=== PATIENT | male | born 1985 | race Caucasian/White ===

== ENCOUNTER 2016-06-18 03:20 | Emergency (ER) | payer SELFPAY ==
[~2016-06-18] VITALS: Ht 185.4 cm; Wt 76.2 kg
[2016-06-18 03:20] VITALS: BP 129/87
--- NOTE | 2016-06-18 04:15 | PHYS DOC ---
Adult General Chief Complaint Chief Complaint: LOWER EXT PAIN HPI HPI 30-year-old homeless male presents secondary to being cold. He states his feet have been freezing all night. He does admit to drinking alcohol. He states he is here basically to get warm. [] Review of Systems Review of Systems Constitutional: Denies fever or chills [] Eyes: Denies change in visual acuity, redness, or eye pain [] HENT: Denies nasal congestion or sore throat [] Respiratory: Denies cough or shortness of breath [] Cardiovascular: No additional information not addressed in HPI [] GI: Denies abdominal pain, nausea, vomiting, bloody stools or diarrhea [] : Denies dysuria or hematuria [] Musculoskeletal: Denies back pain or joint pain [] Integument: Denies rash or skin lesions [] Neurologic: Denies headache, focal weakness or sensory changes [] Endocrine: Denies polyuria or polydipsia [] Allergies Allergies Allergies Coded Allergies Type Severity Reaction Last Updated Verified haloperidol Allergy Unknown 06/18/16 Yes Physical Exam Physical Exam Constitutional: Well developed, well nourished, no acute distress, non-toxic appearance strong smell of alcohol. [] HENT: Normocephalic, atraumatic, bilateral external ears normal, oropharynx moist, no oral exudates, nose normal. [] Eyes: PERRLA, EOMI, conjunctiva normal, no discharge. [] Neck: Normal range of motion, no tenderness, supple, no stridor. [] Cardiovascular:Heart rate regular rhythm, no murmur [] Lungs & Thorax: Bilateral breath sounds clear to auscultation [] Abdomen: Bowel sounds normal, soft, no tenderness, no masses, no pulsatile masses. [] Skin: Warm, dry, no erythema, no rash. [] Back: No tenderness, no CVA tenderness. [] Extremities: No evidence of frostbite on his lower extremities [] Neurologic: Alert and oriented X 3, normal motor function, normal sensory function, no focal deficits noted. [] Psychologic: Depressed affect but not suicidal or homicidal [] EKG EKG [] Radiology/Procedures Radiology/Procedures [] Course & Med Decision Making Course & Med Decision Making Pertinent Labs and Imaging studies reviewed. (See chart for details) [ED course: Evaluation reveals a 30-year-old homeless male who presented stating he was cold. His core body temperature was normal. We allowed him to have warm blankets and get some rest in the department however he was safe for discharge and was let go to the lobby.] Evie Disclaimer Dragon Disclaimer This electronic medical record was generated, in whole or in part, using a voice recognition dictation system. Departure Departure Impression: Primary Impression: Hypothermia Disposition: 01 HOME, SELF-CARE Condition: STABLE Referrals: NO PCP (PCP) Patient Instructions: Hypothermia, Hypothermia Prevention Additional Instructions: Return to emergency department with any new or concerning symptoms Problem Qualifiers Primary Impression: Hypothermia Encounter type: initial encounter Qualified Code: T68.XXXA - Hypothermia, initial encounter ANGELA CHAMPAGNE DO Jun 18, 2016 04:15
== END 2016-06-18 04:21 | disposition home or self-care (01) ==
LOC: ER 03:20
DX: T68.XXXA Hypothermia, initial encounter (principal); Z59.0 Homelessness; X31.XXXA Exposure to excessive natural cold, initial encounter; Z88.8 Allergy status to other drugs, medicaments and biological substances
CPT/HCPCS: 99283